=== PATIENT | male | born 1945 ===

== ENCOUNTER 2019-03-30 09:57 | Inpatient (IN) ==
[2019-03-20 16:18] LABS: Basophils # (Auto) 0 K/mcL (0.0-0.3); Basophils % (Auto) 0.5 % (0.0-2.0); Eosinophils # (Auto) 0.3 K/mcL (0.0-0.7); Eosinophils % (Auto) 4.7 % (0.0-7.0); Granulocytes % (Auto) 60.4 % (38.0-78.0); Hematocrit 43.5 % (41.0-55.0); Hemoglobin 14.3 g/dL (13.5-16.5); Lymphocytes # (Auto) 1.5 K/mcL (1.5-4.8); Lymphocytes % (Auto) 26.7 % (15.5-49.0); Mean Cell Volume 87.9 fL (80.0-100.0); Mean Corpuscular HGB Conc 32.8 g/dL (31.0-36.0); Mean Platelet Volume 8.1 fL (7.4-10.4); Monocytes # (Auto) 0.4 K/mcL (0.1-0.9); Monocytes % (Auto) 7.7 % (1.0-12.0); Platelet Count 212 K/mcL (140-440); RBC 4.94 M/mcL (4.50-5.90); Red Cell Distribution Width 14.3 % (11.5-14.5); WBC 5.8 K/mcL (4.5-11.0)
[2019-03-20 16:39] LABS: Appearance,Urine CLEAR; Bilirubin,Urine NEG (NEG); Color,Urine YELLOW; Culture Indicated,Urine NO; Glucose,Urine (UA) NEGATIVE (NEG); Ketones,Urine NEG (NEG); Leukocyte Esterase,Urine NEG /uL (NEG); Nitrate,Urine NEG (NEG); Protein,Urine NEG (NEG); Specific Gravity,Urine 1.019 (1.000-1.035); Urine Blood NEG mg/dL (<0.03); Urobilinogen,Urine NEG (NEG)
[2019-03-20 17:51] LABS: Blood Urea Nitrogen 19 mg/dl (8-23); Calcium 8.7 mg/dl (8.6-10.4); Carbon Dioxide 26 mmol/L (22-30); Chloride 101 mmol/L (96-108); Glomerular Filtration Rate 66; Glucose 135 mg/dL (70-105)
[~2019-03-30 09:57] MED LIST: IPRATROPIUM/ALBUTEROL 3 ML AMPUL.NEB NEB PRN; SCOPOLAMINE 1 PATCH PATCH TOPICAL PRN; ceFAZolin 2 GM in DEXTROSE 5% IN WATER 50 ML IV SCH
[2019-03-30] MEDS ORDERED: PHENYLEPHRINE 10 MG/ML VIAL IV ONE (13:10)
[2019-03-30] MEDS ORDERED: ONDANSETRON 4 MG/2 ML VIAL IV ONE (13:10)
[2019-03-30] MEDS ORDERED: PROPOFOL 200 MG/20 ML VIAL IV ONE (13:10)
[2019-03-30] MEDS ORDERED: MIDAZOLAM 2 MG/2 ML VIAL IV ONE (13:10)
[2019-03-30] MEDS ORDERED: fentaNYL 100 MCG/2 ML VIAL IV ONE (13:10)
[2019-03-30] MEDS ORDERED: GLYCOPYRROLATE 0.2 MG/ML VIAL IV ONE (13:10)
[2019-03-30] MEDS ORDERED: KETAMINE 100 MG/ML ML IV ONE (13:10)
[2019-03-30] MEDS ORDERED: LIDOCAINE HCL/PF 100 MG/5 ML SYRINGE IV ONE (13:10)
[2019-03-30] MEDS ORDERED: ePHEDrine 50 MG/ML AMPUL IV ONE (13:10)
[2019-03-30] MEDS ORDERED: DEXAMETHASONE 10 MG/ML VIAL IV ONE (13:10)
[2019-03-30] MEDS ORDERED: GENTAMICIN SULFATE 800 MG/20 ML VIAL IR ONE (13:35)
[2019-03-30] MEDS ORDERED: IPRATROPIUM/ALBUTEROL 3 ML AMPUL.NEB NEB PRN (15:09)
[2019-03-30] MEDS ORDERED: fentaNYL 100 MCG/2 ML VIAL IV PRN (15:09)
[2019-03-30] MEDS ORDERED: FLUMAZENIL 0.1 MG/ML ML IV PRN (15:09)
[2019-03-30] MEDS ORDERED: BENZOCAINE/MENTHOL 1 LOZENGE PO PRN (15:09)
[2019-03-30] MEDS ORDERED: NALOXONE HCL 0.4 MG/ML VIAL IV PRN (15:09)
[2019-03-30] MEDS ORDERED: ONDANSETRON 4 MG/2 ML VIAL IV PRN (15:09)
[2019-03-30] MEDS ORDERED: MEPERIDINE 25 MG/ML SYRINGE IV PRN (15:09)
[2019-03-30] MEDS ORDERED: METHOCARBAMOL 1,000 MG/10 ML VIAL IV PRN (15:09)
[2019-03-30] MEDS ORDERED: HYDROmorphone 2 MG/ML VIAL IV PRN ×2 (15:09→15:36)
[2019-03-30] MEDS ORDERED: ACETAMINOPHEN 1,000 MG/100 ML BOTTLE IV ONE (15:09)
[2019-03-30] MEDS ORDERED: LACTATED RINGERS 250 ML IV PRN (15:09)
[2019-03-30] MEDS ORDERED: LACTATED RINGERS 1,000 ML IV SCH (15:15)
[2019-03-30] MEDS ORDERED: GUM MASTIC/STORAX/MSAL/ALCOHOL 1 DOSE DROPERETTE TOPICAL ONE (15:38)
[2019-03-30] MEDS ORDERED: NITROGLYCERIN 0.4 MG TAB.SUBL SL PRN (15:40)
[2019-03-30] MEDS ORDERED: HYDROcodone/APAP 10/325MG TABLET PO PRN (15:40)
[2019-03-30] MEDS ORDERED: ceFAZolin 2 GM in DEXTROSE 5% IN WATER 50 ML IV SCH (15:45)
--- NOTE | 2019-03-30 16:23 | XRay Report ---
HISTORY: Postop left ankle replacement FINDINGS: Ankle is encased in a plaster cast which obscures bone detail. There is a well-positioned left ankle prosthesis. There is no apparent fracture. There are postoperative changes following arthrodesis between the medial cuneiform and first metatarsal using screws. IMPRESSION: Normal exam following left ankle arthroplasty Interpreted and Authenticated by: River Ledbetter 03/30/19
[2019-03-30] MEDS: NACL 0.9% W/KCL 20MEQ 1,000 ML IV SCH (17:00)
[2019-03-30] MEDS: HYDROcodone/APAP 10/325MG TABLET PO PRN ×2 (19:32→21:12)
[2019-03-30] MEDS: ceFAZolin 1 GM VIAL IV SCH (19:33)
[2019-03-31] MEDS: HYDROcodone/APAP 10/325MG TABLET PO PRN ×2 (04:10→08:45)
[2019-03-31] MEDS: ceFAZolin 1 GM VIAL IV SCH (04:11)
[2019-03-31] MEDS: NACL 0.9% W/KCL 20MEQ 1,000 ML IV SCH (05:27)
--- NOTE | 2019-03-31 06:46 | Discharge Summary ---
Ortho Discharge Plan - General - Patient Instructions Diet: Regular Diet Activity: non weight bearing Dressing Care: Cover dressing in shower - Follow Up Plan Follow Up Appointments: Jm Cunningham PA-C [Physician Boring Machine Operator Helper] - 03/06/20 Disposition: Home, Self-Care Prognosis: Good Rehab Potential: Good Overall status at discharge: patient is not back to baseline
--- NOTE | 2019-03-31 06:47 | Discharge Summary ---
Ortho Discharge Plan - General - Patient Instructions Diet: Regular Diet Activity: non weight bearing - Follow Up Plan Follow Up Appointments: Jm Cunningham PA-C [Physician Wireless Technician] - 03/06/20 Disposition: Home, Self-Care Prognosis: Good Rehab Potential: Good
--- NOTE | 2019-03-31 06:49 | Discharge Summary ---
Providers - Providers Patient information: Note initiated : 03/31/19 at 6:47 am Service Date, if different from initiated Date: [] Patient: Sanya Ybarra 73 y/o M admitted on 03/30/19 for Left Total Ankle Replacement. Chief Complaint: [] Date of admission: 03/30/19 Discharge date: 03/31/19 Attending physician: Mann Espinoza Hospitalization Hospital Course: L tar Discharge diagnosis: tOTAL ANKLE REPLACEMENT STATUS Procedures: L tar Complications: nonE Exam - Exam Clean and dry: Yes Weight bearing status: none Ortho Discharge Plan - General - Patient Instructions Diet: Regular Diet Activity: non weight bearing Dressing Care: Cover dressing in shower Patient Education: Joint Replacement Surgery (DC) Additional Instructions: Discharge Instructions: Diet: Regular. Activity: non weight bearing. Care: Cover dressing in shower. Please call [facility] at [phone] on Wednesday to schedule your appointment. Do the exercises at home that physical therapy gave you. Weight bearing as to lerated. Take your prescription, photo ID, insurance cards, and current medication list with you to your first physical therapy appointment. Take your prescription to chicken picker any medication or equipment (such as walker, crutches, toilet riser or C.P.M.) Wear comfortable clothing for your physical therapy. To avoid constipation while taking any narcotic pain medication, take an over the counter stool softener/laxative. Elevation will help with pain and swelling. Call your physician for fevers above 100.5 or pain not controlled by medication. Take Aspirin as prescribed (81mg daily) to prevent blood clots (see medication list). - Follow Up Plan Follow Up Appointments: Jm Cunningham PA-C [Physician Safety Director] - 04/06/19 (Please call [phone] on Wednesday to verify the correct date and a time for your follow up appointment.) Disposition: Home, Self-Care Care Plan Goals: This discharge packet is provided to you to help keep you informed about your care. We want to ensure you get everything you need when you go home. You will also be receiving a call from us in a few days to follow up with you and see how you are doing since your discharge. This gives us a chance to listen to any concerns you maybe experiencing since you were discharged or any additional needs you may have, as well as providing us feedback on your care experience. We strive to always provide excellent care and thank you for your feedback and for choosing [facility]. Prognosis: Good Rehab Potential: Good I certify that the patient requires SNF services: No Overall status at discharge: patient is back to baseline - Orders For Discharge Additional Discharge Orders: Physical Therapy at Discharge - General Location: None Selected Pending Studies Diet Regular Diet Start [place] Mar 30 1534 Hydrocodone Bitart/Acetaminophen (Crowley 10/325mg) 1 - 2 tab PO Q4-6HP PRN PRN Reason: Pain Last Admin: 03/31/19 04:10 Dose: 1 tab Documented by: Admin: 03/30/19 21:12 Dose: 1 tab Documented by: Admin: 03/30/19 19:32 Dose: 1 tab Documented by: PALLAVI Potassium Chloride/Sodium Chloride (Nacl 0.9% W/Kcl 20meq 1000ml) 1,000 mls @ 75 mls/hr IV .[id number] CORNEL Last Admin: 03/31/19 05:27 Dose: 75 mls/hr Documented by: Infusion: 03/31/19 05:27 Dose: 75 mls/hr Documented by: Admin: 03/30/19 17:00 Dose: 75 mls/hr Documented by: ALEIDA Shift Summary 03/31/19 05:09 Shift Summary by Grace Lowery VSMaik on 1L O2 at NOC to keep sats 90% while sleeping. A&Ox4. Medicated for pain with 10mg PO Crowley last approx. 0400. Cast and compression wrap to L lower leg/ankle are C/D/I. Wound vac present with 0 output tonight. Toe touch weight bearing if must bear weight, otherwise non weight bearing. Using urinal at bedside. IV to RFA is running 0.9%NS with 20mEq KCL at 75mls/hr. Initialized on 03/31/19 05:09 - END OF NOTE
[2019-03-31] MEDS ORDERED: ASCORBIC ACID 500 MG TABLET PO SCH (09:00)
[2019-03-31] MEDS ORDERED: ATORVASTATIN 20 MG TABLET PO SCH (09:00)
[2019-03-31] MEDS ORDERED: MULTIVIT,THER IRON,CA,FA & MIN 1 TABLET PO SCH (09:00)
[2019-03-31] MEDS ORDERED: NON FORMULARY MEDICATION 1 DOSE MISCELL (Aspirin [Aspirin Ec] 81 MG) PO SCH (09:00)
[2019-03-31] MEDS ORDERED: ASPIRIN 81 MG TAB.CHEW PO SCH (09:00)
--- NOTE | 2019-03-31 14:20 | Operative Note ---
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 OPERATION: Left total ankle replacement (Inbone-Prophecy). SURGEON: Mann Espinoza M.D. DRIER TAKE OFF TENDER: Jm Cunningham PA-C. The PA's assistance was required for the safe and efficient completion of the entire case. This provider's expertise and technical skill were required throughout the case. The PA assisted with preoperative coordination, intraoperative retraction, wound closure, dressing and splint application, as well as postoperative documentation and care coordination. ANESTHESIA: General. ESTIMATED BLOOD LOSS: 100 mL. TOURNIQUET TIME: 88 minutes. SUMMARY OF PROCEDURE: General anesthesia was attained. The left leg was prepped and draped. An incision was marked and then made from 8 cm above the ankle to the talonavicular joint between the extensor hallucis longus tendon and the tibialis anterior tendon. This was taken down to the junction of these two tendons. This was split, as was the inferior extensor retinaculum. The tibia and talus were exposed from medial to lateral. The soft tissue was elevated off of the bony aspects that were needed for the Prophecy block placement. We placed the cutting guide to the tibia on the anterior aspect of the tibia. This was then pinned in place under mini C-arm control. The block was exchanged for the cutting guide. This was a size 4. The dorsal, medial and lateral cuts were made, and the bone was removed using appropriate instrumentation. The talus was next exposed. The Prophecy guide was placed on the anterior talus and pinned into place. The cutting guide was then used and the proximal tibial cut was made. Attention was then turned back to the tibia. The guide with the bracket to the C-arm for centering of the instrumentation into the center of the intramedullary canal of the tibia was next placed. The bracket was placed as well. A small stab incision was made in the heel. The bushing and bracket were removed. The heel incision was made about 1 cm in length. The bushing and bracket were then placed back on. The intramedullary canal was next drilled. Anterior clips and wrenches were next used, as well as instrumentation through the heel. The 16 mm reamer was used to ream the intramedullary canal, followed by the 18 mm reamer for the very distal aspect of the tibia. The segments were then delivered and connected from the anterior incision. We then sized length distally and a 4 standard showed a very nice combination of medial and lateral fit. Finally, the baseplate and tibial prosthesis were placed. We then used a trial poly and talus for position of talar component which ended up being a 4 as well. This was pinned in place. The front pegs were then made with the drill and the dorsal reaming done 10 mm in diameter. The talar component was next impacted. Finally, we did trials with polys to see the best combination of full dorsiflexion and stability and this was with a 15 mm poly. This was next placed using the Voxound system for placement of the poly. Final mini C-arm x-ray showed excellent position and alignment with clean gutters (The gutters had been debrided prior to doing work on the talus). The tourniquet was let down. All bleeding points were coagulated. The retinaculum was closed throughout with 2-0 Monocryl placed in a [id number] fashion. The subcutaneous tissue was closed throughout with interrupted buried 2-0 Monocryl. The skin was closed with Dura-Ruiz. A Prevena dressing was placed followed by a [place] boot (____). The sponge and needle count was correct. The patient tolerated the procedure well and was taken to the recovery room in stable condition. EHRNAN:cb Job ID: [id number] Doc ID: [id number] Mann Espinoza MD
== END 2019-03-31 09:38 | disposition home or self-care (01) | DRG 469 ==
LOC: MEDSUR 09:57
PROVIDERS: ADMIT Orthopaedic Surgery Foot and Ankle Surgery; ATTEND Orthopaedic Surgery Foot and Ankle Surgery